=== PATIENT | female | born 1935 | race Hispanic/Latino ===

== ENCOUNTER 2018-08-27 13:14 | Emergency (ER) | payer MEDICARE ==
--- NOTE | 2018-08-27 15:47 | RAD ---
Date of service: 08/27/2018 HISTORY: Fall COMPARISON: None available. FINDINGS: LUNGS: No active pulmonary disease. PLEURA: No significant pleural effusion identified, no pneumothorax apparent. CARDIOVASCULAR: Calcific atherosclerotic changes are seen related to the thoracic aorta. Borderline cardiomegaly. No pulmonary vascular congestion. OSSEOUS STRUCTURES: No significant abnormalities. VISUALIZED UPPER ABDOMEN: Normal. OTHER FINDINGS: None. IMPRESSION: No definitive acute infiltrate or pulmonary vascular congestion. Borderline cardiomegaly.
[2018-08-27 15:51] LABS: BASO % 0.3 % (0.0-2.0); EOS % 0.4 % (0.0-4.0); HEMOGLOBIN 13.8 g/dL (12.0-16.0); LYMPH # 0.8 K/uL (1.0-4.3); LYMPH % 17.2 % (20.0-40.0); MEAN CELL VOLUME 97.9 fl (81.0-99.0); MEAN CORPUSCULAR HEMOGLOBIN 32.2 pg (27.0-31.0); MEAN CORPUSCULAR HGB CONC 32.9 g/dL (33.0-37.0); MEAN PLATELET VOLUME 9.6 fl (7.2-11.7); MONO # 0.3 K/uL (0.0-0.8); NEUT # 3.5 K/uL (1.8-7.0); NEUT % 75.1 % (50.0-75.0); RBC 4.28 Mil/uL (3.80-5.20); RED CELL DISTRIBUTION WIDTH 13.2 % (11.5-14.5); WHITE BLOOD COUNT 4.6 K/uL (4.8-10.8)
[2018-08-27 15:52] LABS: INR 1.4; PROTHROMBIN TIME 16.2 Seconds (9.8-13.1)
[2018-08-27 15:55] LABS: PARTIAL THROMBOPLASTIN TIME 30.8 Seconds (25.6-37.1)
[2018-08-27 15:58] LABS: ALB/GLOB RATIO 1.2 (1.0-2.1); ALBUMIN 4.2 g/dL (3.5-5.0); ALT/SGPT 32 U/L (9-52); AST/SGOT 31 U/L (14-36); BLOOD UREA NITROGEN 10 mg/dl (7-17); CALCIUM 9.3 mg/dL (8.4-10.2); GFR NON-AFRICAN AMERICAN > 60
--- NOTE | 2018-08-27 16:22 | ED PDOC ---
HPI: Trauma/Fall - HPI Time Seen by Provider: 08/27/18 13:40 Chief Complaint (Nursing): Trauma Chief Complaint (Provider): Trauma History Per: EMS History/Exam Limitations: no limitations Onset/Duration Of Symptoms: Days Injury Occurred (Timing): Just Before Arrival Location Of Injury: Right: Hip, Leg Associated Symptoms: denies: LOC Additional Complaint(s): 83 y/o female with a PMHx of hypertension and high cholesterol is brought to the ED by EMS for evaluation of her right hip and right upper leg pain, s/p fall. Patient states she was at a restaurant when her cane slipped on the wet floor, causing her to fall on her right side. Patient states she has not ambulated since fall. Otherwise, denies head injury, loss of consciousness, and injury to her foot or ankle. PMD: [facility] - Fall Fall:Prior To Injury: Slipped Past Medical History Reviewed: Historical Data, Nursing Documentation, Vital Signs Vital Signs: Last Vital Signs Temp 97 F L 08/27/18 13:17 Pulse 70 08/27/18 13:17 Resp 16 08/27/18 13:17 BP 153/103 H 08/27/18 13:17 Pulse Ox 94 L 08/27/18 13:17 - Medical History PMH: HTN, Hypercholesterolemia, Osteoporosis - Surgical History Surgical History: No Surg Hx - Family History Family History: States: Unknown Family Hx - Allergies Allergies/Adverse Reactions: Allergies Allergy/AdvReac Type Severity Reaction Status Date / Time No Known Allergies Allergy Verified 08/27/18 13:22 Review of Systems ROS Statement: Except As Marked, All Systems Reviewed And Found Negative Musculoskeletal: Positive for: Leg Pain (right side), Other (right hip pain, no head injury) Neurological: Negative for: Other (loss of conciousness) Physical Exam - Reviewed Nursing Documentation Reviewed: Yes Vital Signs Reviewed: Yes - Physical Exam Appears: Positive for: In Acute Distress (mild, painful ) Extremity: Positive for: Tenderness (right lateral upper leg, right hip). Negative for: Other (ankle and foot injury) Neurologic/Psych: Positive for: Alert - Laboratory Results Result Diagrams: 08/27/18 15:40 08/27/18 15:40 - ECG O2 Sat by Pulse Oximetry: 94 (RA) Pulse Ox Interpretation: Normal Medical Decision Making Medical Decision Making: Time:15:29 Plan: -Type and screen -EKG -CMP -CBC w differential -PTT -COAG -Chest One View -Morphine 1mg IV -Morphine 2mg IV -Fermur Min 2 Views Rt -Hip min 2V w/ Pelvis RT -Knee Right 2 Views Time:15:44 Chest Xray FINDINGS: LUNGS: No active pulmonary disease. PLEURA: No significant pleural effusion identified, no pneumothorax apparent. CARDIOVASCULAR: Calcific atherosclerotic changes are seen related to the thoracic aorta. Borderline cardiomegaly. No pulmonary vascular congestion. OSSEOUS STRUCTURES: No significant abnormalities. VISUALIZED UPPER ABDOMEN: Normal. OTHER FINDINGS: None. IMPRESSION: No definitive acute infiltrate or pulmonary vascular congestion. Borderline cardiomegaly. Time:16:26 Hip/Pelvis Xray FINDINGS: There is impacted fracture of the neck of the right femur at the subcapital region. No dislocation. Mild varus angulation at the fracture site. No fracture of the pelvic ring. Bilateral hip and sacroiliac and hip joint degenerative changes are identified which appear relatively advanced. Pubic symphysis is intact as well as pubic bones and iliac bones. Local soft tissues reflect phleboliths at the inferior pelvic soft tissues. The sacrum appears grossly intact. IMPRESSION: Subcapital right femoral neck fracture, impacted with mild varus angulation. No dislocation. Time:16:27 Right Femur FINDINGS: Right femoral neck fracture is identified described in separate right hip radiograph series in greater detail. Remainder right femur appears unremarkab le. No destructive bony lesion appreciable. IMPRESSION: Right femoral neck fracture with remainder right femur intact. Time: 16:28 Knee Xray FINDINGS: BONES: No acute fracture or destructive bony lesion identified. JOINTS: No subluxation or dislocation. Marked joint space narrowing seen at the medial and lateral femorotibial joint compartments with osteophyte development in articular sclerosis appreciate greater at the lateral and medial femorotibial compartments. Lesser similar change are present the patellofemoral articulation. JOINT EFFUSION: None. OTHER FINDINGS: None. IMPRESSION: Advanced osteoarthritis, tricompartmental. No acute fracture or dislocation. 17:10 Results discussed with patient's family. They are requesting that patient be transferred to [facility]. Spoke to Dr. Smith, hospitalist at [facility], who recommends talking to orthopedist, Dr. Morin. 17:30 Cuca, orthopedic PA, will call back with accepting physician's name. 18:[address] Latham Said who will accept patient to his service. It will be an ER to ER transfer. [facility] states that it is not an EMTALA violation to transfer from ER to ER. Orthopedic PA, Cuca, gave report to [employer]. Scribe Attestation: Documented by Rachelle Gill, acting as a scribe for Dr. Leda Adam MD Provider Scribe Attestation: All medical record entries made by the Scribe were at my direction and personally dictated by me. I have reviewed the chart and agree that the record accurately reflects my personal performance of the history, physical exam, medical decision making, and the department course for this patient. I have also personally directed, reviewed, and agree with the discharge instructions and disposition. Disposition - Clinical Impression Clinical Impression: Hip fracture - Patient ED Disposition Is Patient to be Admitted: Transfer of Care - Disposition Disposition: Other Institution ([facility]) Disposition Time: 18:08 Condition: STABLE Instructions: Hip Fracture Forms: [employer] (Turkish)
[2018-08-27 16:24] VITALS: RESP 18
--- NOTE | 2018-08-27 16:29 | RAD ---
Date of service: 08/27/2018 PROCEDURE: RIGHT HIP with Pelvis Radiographs HISTORY: Fall COMPARISON: None available. TECHNIQUE: AP and frog-leg lateral views of the right hip joint of been submitted with single frontal view the pelvis. FINDINGS: There is impacted fracture of the neck of the right femur at the subcapital region. No dislocation. Mild varus angulation at the fracture site. No fracture of the pelvic ring. Bilateral hip and sacroiliac and hip joint degenerative changes are identified which appear relatively advanced. Pubic symphysis is intact as well as pubic bones and iliac bones. Local soft tissues reflect phleboliths at the inferior pelvic soft tissues. The sacrum appears grossly intact. IMPRESSION: Subcapital right femoral neck fracture, impacted with mild varus angulation. No dislocation.
--- NOTE | 2018-08-27 16:30 | RAD ---
Date of service: 08/27/2018 PROCEDURE: RIGHT FEMUR RADIOGRAPHS HISTORY: Fall COMPARISON: No prior available. TECHNIQUE: Multiple radiographic projections of the right femur been submitted for interpretation. FINDINGS: Right femoral neck fracture is identified described in separate right hip radiograph series in greater detail. Remainder right femur appears unremarkable. No destructive bony lesion appreciable. IMPRESSION: Right femoral neck fracture with remainder right femur intact.
--- NOTE | 2018-08-27 16:32 | RAD ---
Date of service: 08/27/2018 PROCEDURE: Right Knee Radiographs. HISTORY: Fall COMPARISON: None. FINDINGS: BONES: No acute fracture or destructive bony lesion identified. JOINTS: No subluxation or dislocation. Marked joint space narrowing seen at the medial and lateral femorotibial joint compartments with osteophyte development in articular sclerosis appreciate greater at the lateral and medial femorotibial compartments. Lesser similar change are present the patellofemoral articulation. JOINT EFFUSION: None. OTHER FINDINGS: None. IMPRESSION: Advanced osteoarthritis, tricompartmental. No acute fracture or dislocation.
[2018-08-27 19:34] VITALS: BP 140/73; PULSE 89; TEMP 98
--- NOTE | 2018-08-28 14:51 | CARD ---
APPROVED REPORT Date of service: 08/27/2018 EKG Measurement Heart [id number] <Conclusion> Atrial fibrillation with aberrantly conducted complexes Nonspecific ST abnormality Abnormal ECG
[2018-08-29 14:22] VITALS: O2SAT 94
== END 2018-08-27 19:55 | disposition short-term general hospital (02) ==
LOC: H.ER 13:14
DX: S72.001A Fracture of unspecified part of neck of right femur, initial encounter for closed fracture (principal); W01.0XXA Fall on same level from slipping, tripping and stumbling without subsequent striking against object, initial encounter; Y92.511 Restaurant or cafe as the place of occurrence of the external cause; E78.00 Pure hypercholesterolemia, unspecified; I10 Essential (primary) hypertension; I48.91 Unspecified atrial fibrillation; M81.0 Age-related osteoporosis without current pathological fracture
CPT/HCPCS: 71045; 73502; 73552; 73560; 80053; 85025; 85610; 85730; 86850; 86900; 93005; 96374; 96376; 99285; J2270